=== PATIENT | female | born 1970 | race Caucasian/White ===

== ENCOUNTER 2016-10-01 14:55 | Inpatient (IN) ==
[2016-10-01 15:12] LABS: Bilirubin,Urine Negative (Negative); Blood,Urine Negative (Negative); Clarity,Urine Clear (Clear); Color,Urine Yellow (Yellow); Glucose,Urine (UA) Normal (Normal); Ketones,Urine Negative (Negative); Leukocyte Esterase,Urine Negative (Negative); Nitrite,Urine Negative (Negative); PH,Urine 6.5 pH Units (5.0-8.0); Protein,Urine Negative (Neg-Trace); Specific Gravity,Urine 1.007 (1.010-1.025); Urobilinogen,Urine Normal (Normal)
[2016-10-01 15:19] LABS: Amphetamine Screen,Urine Negative ng/mL (Cutoff=1000); Barbiturate Screen,Urine Negative ng/mL (Cutoff=200); Benzodiazepines Screen,Urine Negative ng/mL (Cutoff=200); Cannabinoid Screen,Urine Negative ng/mL (Cutoff = 50); Cocaine Screen,Urine Negative ng/mL (Cutoff= 300); Opiate Screen,Urine Negative ng/mL (Cutoff=300); Phencyclidine Screen,Urine Negative ng/mL (Cutoff=25)
[2016-10-01 15:23] LABS: Basophils % 0.4 %; Eosinophils % 0.4 %; Hematocrit 44.2 % (35.3-44.9); Hemoglobin 14.8 g/dL (11.5-15.4); Immature Granulocytes % 0.4 % (0-4); Lymphocytes # 2.7 K/mcL (0.6-4.6); Lymphocytes % 26.1 %; Mean Corpuscular HGB Conc 33.5 g/dL (31.6-35.5); Mean Corpuscular Volume 95.7 fL (83.0-100.0); Mean Platelet Volume 10.8 fL (9.4-12.4); Monocytes # 0.7 K/mcL (0.0-1.3); Monocytes % 6.4 %; Neutrophils # 6.9 K/mcL (1.6-8.9); Platelet Count 248 K/mcL (140-400); Red Blood Count 4.62 M/mcL (3.82-4.97); Red Cell Distribution Width 12.4 % (11.5-14.5); Segmented Neutrophils % 66.3 %
[2016-10-01 15:41] LABS: BUN/Creatinine Ratio 11 (6-26); Blood Urea Nitrogen 9 mg/dL (7-20); Calcium 9.4 mg/dL (8.6-10.8); Carbon Dioxide 22 mEq/L (19-29); Chloride 110 mEq/L (98-109); Ethanol 54 mg/dL (0-10); Glucose 75 mg/dL (70-99); Osmolality,Calculated 291 (280-300); Potassium 3.7 mEq/L (3.5-4.5); Sodium 142 mEq/L (136-145); eGFR For African Americans > 60 (> 60); eGFR For Non-African Americans > 60 (> 60)
[2016-10-01 15:44] LABS: Acetaminophen < 1.0 mcg/mL (10-30); Salicylate < 5.0 mg/dL (15-30)
--- NOTE | 2016-10-01 15:51 | Emergency Department Note ---
Disposition Clinical Impression: Suicidal ideation Disposition: Admitted As Inpatient Referrals: Miryam Mayer MD [Primary Care Provider] - Forms: ED Satisfaction Letter Psych HPI - General Chief Complaint: ED Psychiatric Symptoms Stated Complaint: SI/itching/tried to stab self w/fork Time Seen by Provider: 10/01/16 14:58 Source: patient, EMS Nursing Notes Reviewed: Yes Vital Signs Reviewed: Yes - History of Present Illness Pt complaint: suicidal ideation, feels depressed Onset (ago): day(s) (1) Duration: constant, getting worse History of similar episodes: Yes (Psychiatric admission in June for overdose of pills) Improves with: none Worsens with: none Alleged intoxication: No Associated Psychiatric Symptoms: depression, suicidal ideation Associated symptoms: Reports: denies other symptoms Traumatic symptoms: denies traumatic injury Treatments prior to arrival: none Self harm or harm to others: admits thoughts of self harm - Related Data Home Medications Medication Instructions Recorded Confirmed Buspar 08/25/16 Paxil 08/25/16 PriLOSEC 08/25/16 08/25/16 Previous Rx's Medication Instructions Recorded Diclofenac Sodium [Voltaren] 50 mg PO BID #30 tablet. 08/25/16 Promethazine [Phenergan] 25 mg PO Q6HR PRN #10 tablet 08/29/16 Allergies Allergy/AdvReac Type Severity Reaction Status Date / Time Amoxicillin Allergy Hives Verified 10/01/16 14:59 codeine Allergy Rash Verified 10/01/16 14:59 [From Tylenol-Codeine #3] tramadol [From Ultram] Allergy Hives Verified 10/01/16 14:59 All systems ED: reviewed and negative except as stated. Constitutional: Denies: fever, chills Cardiovascular: Denies: chest pain, palpitations Past Medical History - Past Medical History Source: patient, nursing notes reviewed Medical history: Reports: no medical history Surgical history: Reports: non-contributory Psychiatric history: Reports: anxiety, depression, prior suicide attempt, previous psychiatric hospitalization [employer] history: Reports: endometriosis - Social History Smoking Status: Current every day smoker Smokeless Tobacco Status: No Alcohol use: Reports: occasionally, recent Drug use: Reports: none Physical Exam - General Limitations: no limitations General appearance: alert - Head Head exam: atraumatic, normocephalic, normal inspection - Eye Eye exam: Present: normal appearance, PERRL, EOMI - Expanded Eye Exam Pupils: Left: reactive - ENT ENT exam: normal exam, normal oropharynx, mucous membranes moist - Expanded ENT Exam External ear exam: Present: normal external inspection Mouth exam: Present: normal external inspection Teeth exam: Present: normal inspection Throat exam: Present: normal inspection - Neck Neck exam: Present: normal inspection, full ROM, trachea midline - Chest Chest inspection: Present: normal inspection, symmetric chest wall rise - Respiratory Respiratory exam: Present: normal lung sounds bilaterally - Cardiovascular Cardiovascular exam: Present: regular rate, normal rhythm, normal heart sounds - Abdominal Exam Abdominal exam: Present: soft, Non-Tender. Absent: tenderness, distention, guarding, rebound, rigidity - Extremities Exam Extremities exam: Present: normal inspection, full ROM. Absent: tenderness, pedal edema - Expanded Upper Extremity Exam Shoulder exam: Present: normal inspection, full ROM Arm exam: Present: normal inspection, full ROM Elbow exam: Present: normal inspection, full ROM Forearm/Wrist exam: Present: normal inspection, full ROM Hand exam: Present: normal inspection, full ROM Vascular exam: Normal: capillary refill, radial pulse - Expanded Lower Extremity Exam Hip/Pelvis exam: Present: normal inspection, full ROM Upper leg exam: Present: normal inspection, full ROM Knee exam: Present: normal inspection, full ROM Lower leg exam: Present: normal inspection, full ROM Ankle exam: Present: normal inspection, full ROM Foot/toe exam: Present: normal inspection, full ROM Neurovascular/Tendon exam: Absent: motor deficit, sensory deficit, tendon deficit - Back Exam Back exam: Present: normal inspection, full ROM. Absent: tenderness - Neurological Exam Neurological exam: Present: alert, oriented X3 - Expanded Neurological Exam Patient oriented to: Present: person, place, time Coma Scale Eye Opening: Spontaneous Coma Scale Motor Response: Obeys Commands Coma Scale Verbal Response: Oriented Coma Scale Total: 15 - Psychiatric Psychiatric exam: Present: normal affect, depressed - Skin Skin exam: Present: warm, dry, intact, normal color Course Vital Signs Temperature 98.3 F 10/01/16 14:58 Pulse Rate 85 10/01/16 14:58 Respiratory Rate 20 10/01/16 14:58 Blood Pressure 125/83 10/01/16 14:58 O2 Sat by Pulse Oximetry 92 10/01/16 14:58 Temperature 98.3 F 10/01/16 15:00 Pulse Rate 85 10/01/16 15:00 Respiratory Rate 20 10/01/16 15:00 Blood Pressure 125/83 10/01/16 15:00 O2 Sat by Pulse Oximetry 92 10/01/16 15:00 Oxygen Delivery Oxygen Delivery Room Air Psych - Lab Data Result diagrams: 10/01/16 15:17 10/01/16 15:17 Lab Results 10/01/16 10/01/16 10/01/16 Range/Units 15:00 15:00 15:17 WBC 10.3 (4.3-11.1) K/mcL RBC 4.62 (3.82-4.97) M/mcL Hgb 14.8 (11.5-15.4) g/dL Hct 44.2 (35.3-44.9) % MCV 95.7 (83.0-100.0) fL MCH 32.0 (28.0-33.3) pg MCHC 33.5 (31.6-35.5) g/dL RDW 12.4 (11.5-14.5) % Plt Count 248 (140-400) K/mcL MPV 10.8 (9.4-12.4) fL Immature Gran % 0.4 (0-4) % Seg Neutrophils % 66.3 % Lymphocytes % 26.1 % Monocytes % 6.4 % Eosinophils % 0.4 % Basophils % 0.4 % Neutrophils # 6.9 (1.6-8.9) K/mcL Lymphocytes # 2.7 (0.6-4.6) K/mcL Monocytes # 0.7 (0.0-1.3) K/mcL Eosinophils # 0.0 (0.0-0.6) K/mcL Basophils # 0.0 (0.0-0.2) K/mcL Sodium (136-145) mEq/L Potassium (3.5-4.5) mEq/L Chloride (98-109) mEq/L Carbon Dioxide (19-29) mEq/L BUN (7-20) mg/dL Creatinine (0.57-1.11) mg/dL Est GFR ( Amer) (> 60) Est GFR (Non-Af Amer) (> 60) BUN/Creatinine Ratio (6-26) Glucose (70-99) mg/dL Calculated Osmolality (280-300) Calcium (8.6-10.8) mg/dL Urine Color Yellow (Yellow) Urine Clarity Clear (Clear) Urine pH 6.5 (5.0-8.0) pH Units Ur Specific [place] 1.007 L (1.010-1.025) Urine Protein Negative (Neg-Trace) mg/dL Urine Glucose (UA) Normal (Normal) mg/dL Urine Ketones Negative (Negative) mg/dL Urine Blood Negative (Negative) Urine Nitrite Negative (Negative) Urine Bilirubin Negative (Negative) Urine Urobilinogen Normal (Normal) mg/dL Ur Leukocyte Esterase Negative (Negative) Salicylates (15-30) mg/dL Urine Opiates Screen Negative (Nycixn=208) ng/mL Acetaminophen (10-30) mcg/mL Ur Barbiturates Screen Negative (Wqpykq=345) ng/mL Ur Phencyclidine Scrn Negative (Cutoff=25) ng/mL Ur Amphetamines Screen Negative (Rzbggi=8128) ng/mL U Benzodiazepines Scrn Negative (Xlfitx=499) ng/mL Urine Cocaine Screen Negative (Cutoff= 300) ng/mL U Marijuana (THC) Screen Negative (Cutoff = 50) ng/mL Ethyl Alcohol (0-10) mg/dL 10/01/16 Range/Units 15:17 WBC (4.3-11.1) K/mcL RBC (3.82-4.97) M/mcL Hgb (11.5-15.4) g/dL Hct (35.3-44.9) % MCV (83.0-100.0) fL MCH (28.0-33.3) pg MCHC (31.6-35.5) g/dL RDW (11.5-14.5) % Plt Count (140-400) K/mcL MPV (9.4-12.4) fL Immature Gran % (0-4) % Seg Neutrophils % % Lymphocytes % % Monocytes % % Eosinophils % % Basophils % % Neutrophils # (1.6-8.9) K/mcL Lymphocytes # (0.6-4.6) K/mcL Monocytes # (0.0-1.3) K/mcL Eosinophils # (0.0-0.6) K/mcL Basophils # (0.0-0.2) K/mcL Sodium 142 (136-145) mEq/L Potassium 3.7 (3.5-4.5) mEq/L Chloride 110 H (98-109) mEq/L Carbon Dioxide 22 (19-29) mEq/L BUN 9 (7-20) mg/dL Creatinine 0.81 (0.57-1.11) mg/dL Est GFR ( Amer) > 60 (> 60) Est GFR (Non-Af Amer) > 60 (> 60) BUN/Creatinine Ratio 11 (6-26) Glucose 75 (70-99) mg/dL Calculated Osmolality 291 (280-300) Calcium 9.4 (8.6-10.8) mg/dL Urine Color (Yellow) Urine Clarity (Clear) Urine pH (5.0-8.0) pH Units Ur Specific [place] (1.010-1.025) Urine Protein (Neg-Trace) mg/dL Urine Glucose (UA) (Normal) mg/dL Urine Ketones (Negative) mg/dL Urine Blood (Negative) Urine Nitrite (Negative) Urine Bilirubin (Negative) Urine Urobilinogen (Normal) mg/dL Ur Leukocyte Esterase (Negative) Salicylates < 5.0 L (15-30) mg/dL Urine Opiates Screen (Ygsemp=009) ng/mL Acetaminophen < 1.0 L (10-30) mcg/mL Ur Barbiturates Screen (Uytrev=507) ng/mL Ur Phencyclidine Scrn (Cutoff=25) ng/mL Ur Amphetamines Screen (Opyutc=9713) ng/mL U Benzodiazepines Scrn (Veabxh=941) ng/mL Urine Cocaine Screen (Cutoff= 300) ng/mL U Marijuana (THC) Screen (Cutoff = 50) ng/mL Ethyl Alcohol 54 H (0-10) mg/dL Psychiatric Medical Clearance - Medical Clearance Checklist Medical History: No Social History Section defined Current Vitals: Last Vital Signs Temp 98.3 F 10/01/16 15:00 Pulse 85 10/01/16 15:00 Resp 20 10/01/16 15:00 BP 125/83 10/01/16 15:00 Pulse Ox 92 10/01/16 15:00 Psychiatric Lab Panel: Drug Levels and Toxicity 10/01/16 10/01/16 15:00 15:17 Urine Opiates Screen Negative Acetaminophen < 1.0 L Ur Barbiturates Screen Negative Ur Phencyclidine Scrn Negative Ur Amphetamines Screen Negative U Benzodiazepines Scrn Negative Urine Cocaine Screen Negative U Marijuana (THC) Screen Negative Ethyl Alcohol 54 H Abnormal Labs: Abnormal lab results Chloride 110 mEq/L (98-109) H 10/01/16 15:17 Ur Specific [place] 1.007 (1.010-1.025) L 10/01/16 15:00 Salicylates < 5.0 mg/dL (15-30) L 10/01/16 15:17 Acetaminophen < 1.0 mcg/mL (10-30) L 10/01/16 15:17 Ethyl Alcohol 54 mg/dL (0-10) H 10/01/16 15:17 Statement of Medical Clearance: I have evaluated the patient, reviewed diagnostic information, and certify that the patient's medical condition is sufficiently stable that transfer to the psychiatric unit does not pose a significant risk of deterioration.
[2016-10-01] MEDS ORDERED: Haloperidol Lactate 5 MG/ML VIAL IM PRN (19:20)
[2016-10-01] MEDS ORDERED: MOM Conc 10 ML UD.LIQ PO PRN (19:20)
[2016-10-01] MEDS ORDERED: hydrOXYzine pamoate 25 MG CAPSULE PO PRN (19:20)
[2016-10-01] MEDS ORDERED: Mag Hydrox/Al Hydrox/Simeth 30 ML UDC PO PRN (19:20)
[2016-10-01] MEDS ORDERED: *HR* LORazepam 1 MG TABLET PO PRN (19:20)
[2016-10-01] MEDS ORDERED: *HR* LORazepam 2 MG/ML VIAL IM PRN (19:20)
[2016-10-01] MEDS ORDERED: Acetaminophen 325 MG TABLET PO PRN (19:20)
[2016-10-01] MEDS ORDERED: Nicotine 2 MG GUM BC PRN (19:20)
[2016-10-01] MEDS ORDERED: traZODone 50 MG TABLET PO PRN (19:20)
[2016-10-01] MEDS: Pregabalin 75 MG CAPSULE PO SCH (21:12)
[2016-10-01] MEDS: traZODone 50 MG TABLET PO SCH (21:12)
[2016-10-02] MEDS: Pregabalin 75 MG CAPSULE PO SCH ×2 (08:00→20:49)
--- NOTE | 2016-10-02 17:54 | Psychiatry History & Physical ---
Date of Encounter: 10/02/16 Time of Encounter: 17:49 History of Present Illness Patient Stated Chief Complaint: depression and anxiety Medicare Admission Attestation: For traditional Medicare patients the provided hospital inpatient services are reasonable and necessary and in the case of services not specified as inpatient -only under 42 CFR 419.22 (n), that they are appropriately provided as inpatient services in accordance 42 CFR 412.3. For Critical Access Hospital the patient may reasonably be expected to be discharged or transferred to a hospital within 96 hours after admission to the Critical Access Hospital. Admitted From: Home Plans for Post Hospital Care: Home History of Present Illness: Ms. Jiménez is a 46 year old female with past psychiatric hx of depression and anxiety she reports she was hospitalized in [place] in june after she didnt have a job and had financial issues and was homeless. she came to live with her sister after that here and she reprots its rene g"ok". she reports she gets sad bc she wants to go back to [place] bc she misses her family and friends. 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 she reports that she wants to apply in [place] but would need a place to stay. Pt reports her paxil and buspar was increased in june and reports not knowing if this helped. she reports she bene on that long time. she reprots she feels her brain is going and feels medication not helping with anxiety. she reports that the medication seroquel helped there and she as taking it during the day as neded as well. sleep appetite pt endorsed depressive sx's pt endorsed anxiety sx's Past Med Surg Social Fam HX - Past Medical History Medical history: no medical history - Past Psychiatric History Psychiatric history: Reports: anxiety, depression, prior suicide attempt Past psychiatric history details: inpatient hospitalizations: june in [place] [facility]: took overdose of paxil and buspar in june self harm: scratches self past meds: its been so long i cant remember family psych hx; denies Family psychiatric history: No Family History of Suicide: None - Past Surgical History Surgical History: non-contributory - Social History Smoking Status: Current every day smoker Smokeless Tobacco Status: No Alcohol use: occasionally, recent Drug use: none Medications & Allergies Buspirone HCl [Buspar] 15 mg PO BID 10/01/16 [History] Omeprazole [PriLOSEC] 20 mg PO DAILY 10/01/16 [History] Paroxetine [Paxil] 30 mg PO DAILY 10/01/16 [History] Pregabalin [Lyrica] 300 mg PO BID 10/01/16 [History] traZODone [TraZODone] 50 mg PO HS 10/01/16 [History] 3 Allergy/AdvReac Type Severity Reaction Status Date / Time Amoxicillin Allergy Hives Verified 10/01/16 14:59 codeine Allergy Rash Verified 10/01/16 14:59 [From Tylenol-Codeine #3] tramadol [From Ultram] Allergy Hives Verified 10/01/16 14:59 Review of Systems Psychiatric: Reports: depression, anxiety, difficulty concentrating, hopelessness, mood swings, panic attacks Mental Status Exam Patient orientation: Yes Person, Yes Time, Yes Place, Yes Circumstance Level of alertness: Alert Patient appearance: Appropriate, Obese Behavior: anxious, tearful Psychomotor activity: Normal Eye contact: Maintains Eye Contact Mood description: Depressed, Anxious Affect description: labile, flat Speech pattern: Normal rate Speech volume: Normal Thought process: Intact Thought content: Yes Suicidal ideation Attention span: Capable of Focused Attention, Capable of Sustained Attention Memory description: Grossly Intact Patient reliability: Reliable Historian Intelligence estimate: Average Judgment: Limited Insight: Partial Exam - HEENT Head exam IM: Present: atraumatic, normal inspection Eye exam IM: Present: conjunctival injection - Neurological Neurological exam IM: Present: alert, oriented X3 Results - Vital Signs Vital signs: Temp Pulse Resp BP Pulse Ox 97.6 F 63 16 113/77 92 10/02/16 08:04 10/02/16 08:04 10/02/16 08:04 10/02/16 08:04 10/01/16 15:00 - Labs Labs: Laboratory Last Values WBC 10.3 K/mcL (4.3-11.1) 10/01/16 15:17 RBC 4.62 M/mcL (3.82-4.97) 10/01/16 15:17 Hgb 14.8 g/dL (11.5-15.4) 10/01/16 15:17 Hct 44.2 % (35.3-44.9) 10/01/16 15:17 MCV 95.7 fL (83.0-100.0) 10/01/16 15:17 MCH 32.0 pg (28.0-33.3) 10/01/16 15:17 MCHC 33.5 g/dL (31.6-35.5) 10/01/16 15:17 RDW 12.4 % (11.5-14.5) 10/01/16 15:17 Plt Count 248 K/mcL (140-400) 10/01/16 15:17 MPV 10.8 fL (9.4-12.4) 10/01/16 15:17 Immature Gran % 0.4 % (0-4) 10/01/16 15:17 Seg Neutrophils % 66.3 % 10/01/16 15:17 Lymphocytes % 26.1 % 10/01/16 15:17 Monocytes % 6.4 % 10/01/16 15:17 Eosinophils % 0.4 % 10/01/16 15:17 Basophils % 0.4 % 10/01/16 15:17 Neutrophils # 6.9 K/mcL (1.6-8.9) 10/01/16 15:17 Lymphocytes # 2.7 K/mcL (0.6-4.6) 10/01/16 15:17 Monocytes # 0.7 K/mcL (0.0-1.3) 10/01/16 15:17 Eosinophils # 0.0 K/mcL (0.0-0.6) 10/01/16 15:17 Basophils # 0.0 K/mcL (0.0-0.2) 10/01/16 15:17 Sodium 142 mEq/L (136-145) 10/01/16 15:17 Potassium 3.7 mEq/L (3.5-4.5) 10/01/16 15:17 Chloride 110 mEq/L (98-109) H 10/01/16 15:17 Carbon Dioxide 22 mEq/L (19-29) 10/01/16 15:17 BUN 9 mg/dL (7-20) 10/01/16 15:17 Creatinine 0.81 mg/dL (0.57-1.11) 10/01/16 15:17 Est GFR ( Amer) > 60 (> 60) 10/01/16 15:17 Est GFR (Non-Af Amer) > 60 (> 60) 10/01/16 15:17 BUN/Creatinine Ratio 11 (6-26) 10/01/16 15:17 Glucose 75 mg/dL (70-99) 10/01/16 15:17 Calculated Osmolality 291 (280-300) 10/01/16 15: Calcium 9.4 mg/dL (8.6-10.8) 10/01/16 15:17 Urine Color Yellow (Yellow) 10/01/16 15:00 Urine Clarity Clear (Clear) 10/01/16 15:00 Urine pH 6.5 pH Units (5.0-8.0) 10/01/16 15:00 Ur Specific [place] 1.007 (1.010-1.025) L 10/01/16 15:00 Urine Protein Negative mg/dL (Neg-Trace) 10/01/16 15:00 Urine Glucose (UA) Normal mg/dL (Normal) 10/01/16 15:00 Urine Ketones Negative mg/dL (Negative) 10/01/16 15:00 Urine Blood Negative (Negative) 10/01/16 15:00 Urine Nitrite Negative (Negative) 10/01/16 15:00 Urine Bilirubin Negative (Negative) 10/01/16 15:00 Urine Urobilinogen Normal mg/dL (Normal) 10/01/16 15:00 Ur Leukocyte Esterase Negative (Negative) 10/01/16 15:00 Salicylates < 5.0 mg/dL (15-30) L 10/01/16 15:17 Urine Opiates Screen Negative ng/mL (Chvbbe=801) 10/01/16 15:00 Acetaminophen < 1.0 mcg/mL (10-30) L 10/01/16 15:17 Ur Barbiturates Screen Negative ng/mL (Zsxlrq=945) 10/01/16 15:00 Ur Phencyclidine Scrn Negative ng/mL (Cutoff=25) 10/01/16 15:00 Ur Amphetamines Screen Negative ng/mL (Zokqav=9204) 10/01/16 15:00 U Benzodiazepines Scrn Negative ng/mL (Xrtyto=374) 10/01/16 15:00 Urine Cocaine Screen Negative ng/mL (Cutoff= 300) 10/01/16 15:00 U Marijuana (THC) Screen Negative ng/mL (Cutoff = 50) 10/01/16 15:00 Ethyl Alcohol 54 mg/dL (0-10) H 10/01/16 15:17 Assessment and Plan (1) Major depression, recurrent Current visit: Yes Status: Acute Plan: Admit inpatient for safety and stabilization, Encourage participation in unit milieu, Monitor sleep, Monitor appetite Risks, benefits, side effects, alternatives discussed w/pt: Yes Patient agreeable to treatment: Yes Plans for Post Hospital Care: Home Qualifiers: Active/Remission status: currently active Major depression episode severity : moderate Qualified Code(s): F33.1 - Major depressive disorder, recurrent, moderate
[2016-10-02] MEDS ORDERED: Neosporin OINT 15 GM TUBE TP PRN (18:05)
[2016-10-02] MEDS: traZODone 50 MG TABLET PO SCH (20:48)
[2016-10-03] MEDS: Pregabalin 75 MG CAPSULE PO SCH ×2 (09:47→20:44)
--- NOTE | 2016-10-03 14:07 | Psychiatry Progress Note ---
Date of Encounter: 10/03/16 Time of Encounter: 14:03 Subjective Interval history: Patient seen and evaluated this morning. During evaluation patient was not in any acute distress. Patient reports she is doing better than she was on admission. Discussed medication and patient denied any current side effects. Patient reports still feeling some ongoing depression and anxiety. We discussed the ongoing taper between Cymbalta and Paxil. Patient was agreeable to this patient has been med compliant patient has been coming out of her room and interacting with peers patient has been eating and sleeping. Patient did NOT endorse suicidal thoughts at the time of the evaluation. Review of Systems Psychiatric: Reports: depression, anxiety, difficulty concentrating, hopelessness, mood swings, panic attacks Results - Vital Signs Vital Signs: Temp Pulse Resp BP Pulse Ox 98 F 75 16 114/74 92 10/03/16 09:00 10/03/16 09:00 10/03/16 09:00 10/03/16 09:00 10/01/16 15:00 Assessment and Plan (1) Major depression, recurrent Current visit: Yes Status: Acute Additional Plan: 10/03:c ontinue paxil decrease and start of cymbalta Risks, benefits, side effects, alternatives discussed w/pt: Yes Patient agreeable to treatment: Yes Qualifiers: Active/Remission status: currently active Major depression episode severity : moderate Qualified Code(s): F33.1 - Major depressive disorder, recurrent, moderate Consult Discharge Plan - Plan Referrals: NONE,PCP [Primary Care Provider] -
[2016-10-03] MEDS: traZODone 50 MG TABLET PO SCH (20:45)
[2016-10-04] MEDS: Pregabalin 75 MG CAPSULE PO SCH (08:33)
[2016-10-04 09:04] VITALS: BP 119/82
--- NOTE | 2016-10-04 14:10 | Discharge Summary ---
Date of Encounter: 10/04/16 Time of Encounter: 14:06 Diagnosis - Discharge Diagnosis (1) Major depression, recurrent Status: Acute Qualifiers: Active/Remission status: currently active Major depression episode severity : moderate Qualified Code(s): F33.1 - Major depressive disorder, recurrent, moderate Medications - Discharge Medications Prescriptions: Buspirone HCl [Buspar] 15 mg PO BID #60 tab DULoxetine [Cymbalta] 30 mg PO BID #60 hydrOXYzine pamoate [HydrOXYzine Pamoate] 25 mg PO TID PRN #90 PRN Reason: Anxiety Pregabalin [Lyrica] 150 mg PO BID #120 Quetiapine Fumarate [Seroquel] 25 mg PO BID PRN #60 tab PRN Reason: Anxiety Quetiapine Fumarate [Seroquel] 50 mg PO HS #30 tab traZODone [TraZODone] 50 mg PO HS #30 tab Buspirone HCl [Buspar] 15 mg PO BID #60 tab 10/04/16 [Rx] DULoxetine [Cymbalta] 30 mg PO BID #60 10/04/16 [Rx] Omeprazole [PriLOSEC] 20 mg PO 0630 10/04/16 [Rx] Pregabalin [Lyrica] 150 mg PO BID #120 10/04/16 [Rx] Quetiapine Fumarate [Seroquel] 25 mg PO BID PRN #60 tab 10/04/16 [Rx] Quetiapine Fumarate [Seroquel] 50 mg PO HS #30 tab 10/04/16 [Rx] hydrOXYzine pamoate [HydrOXYzine Pamoate] 25 mg PO TID PRN #90 10/04/16 [Rx] traZODone [TraZODone] 50 mg PO HS #30 tab 10/04/16 [Rx] 3 Allergy/AdvReac Type Severity Reaction Status Date / Time Amoxicillin Allergy Hives Verified 10/01/16 14:59 codeine Allergy Rash Verified 10/01/16 14:59 [From Tylenol-Codeine #3] tramadol [From Ultram] Allergy Hives Verified 10/01/16 14:59 Provider Date of admission: 10/01/16 19:20 Primary care physician: PCP NONE Discharging clinician: Desiree Castro Assessment and Plan - Patient/Caregiver Discharge Instructions Activity: resume usual activities as tolerated Diet: regular diet - Follow up Plan Follow up with: [facility] [Outside] - 10/20/16 9:00 am (The above appointment is with Fransisca Wilkins Daily for outpatient psychiatric assessment and medication management services. Please arrive 30 minutes early to complete paperwork. Please bring your photo ID and medication list. This is the first available appointment. You may contact the office regularly to check for cancellations that may allow you to be seen sooner. Additionally, the new watch caser assigned to you will contact you directly to schedule your intake appointment for case management and mental health counseling services. ) Overall status at discharge: Stable Disposition: Home, Self-Care Hospital Course Hospital course: Ms. Jiménez is a 46 year old female with major depressive disorder rule out bipolar disorder most recent episode depressed admitted to inpatient psychiatric hospitalization cessation for safety and stabilization. Patient's home medications were continued and reviewed. Throughout the hospital course patient's lyrica was decrased and pt was started on cymbalta and this was titrated up and she was restarted on seroquel which she reprots she had been on and has bene helpful for her anxiety sx; and to assist with mood symptom stabilization. Pt was also started on trazodone for sleep. Patient did not exhibit any side effects to medication he was med compliant while he was on the unit patient participated in groups and was socializing with peers. Patient's sleep and appetite was fair. Patient denied any suicide or homicide ideations. Patient denied any thoughts of self-harm. Patient reports being interested in outpatient medication management and counseling. Patient was discussed for discharge due to patient not being a threat to himself or anyone else. 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 Patient will be returning home on discharge. Time spent discussing smoking cessation with patient: 3 to 10 minutes Does patient wish to continue nicotine replacement upon disc: No - Time Spent with Patient Total time spent providing and/or coordinating discharge services: Less than 30 minutes Quality - Multiple Antipsychotics Patient discharged on 2 or more antipsychotic medications: No Procedures - Procedures Procedures: Medication Management, Supportive Therapy, Group Therapy, Psychoeducational Therapy Mental Status Exam - Mental Status Exam Patient orientation: Yes Person, Yes Time, Yes Place, Yes Circumstance Patient appearance: Appropriate Behavior: calm Psychomotor activity: Normal Eye contact: Maintains Eye Contact Mood description: Euthymic/stable Affect description: congruent with mood Speech pattern: Normal rate, Normal rhythm, Normal tone Speech Volume: Normal Thought process: Intact Thought Content: Yes Intact Judgment: Fair Insight: Full
[2016-10-04] MEDS ORDERED: Pregabalin 75 MG CAPSULE PO SCH (21:00)
== END 2016-10-04 15:50 | disposition home or self-care (01) | DRG 751 ==
LOC: 1ANU 14:55 → EMEROO 14:55 → 1ANU 18:38
PROVIDERS: ADMIT Psychiatry & Neurology Psychiatry; ATTEND Psychiatry & Neurology Psychiatry